=== PATIENT | female | born 1975 | race Caucasian/White ===

== ENCOUNTER → 2023-09-12 07:20 | Outpatient (REF) | payer OTHER, SELFPAY ==
[2023-09-12 09:38] LABS: Hepatitis B Surface Antibody Negative
== END ==
LOC: REG 07:20
PROVIDERS: ATTENDING PHYSICIAN Nurse Practitioner Adult Health; FAMILY PHYSICIAN Family Medicine
DX: Z23 Encounter for immunization (principal)
CPT/HCPCS: 86706

== ENCOUNTER 2024-02-01 09:01 | Emergency (ER) | payer OTHER, SELFPAY ==
[2024-02-01 09:05] VITALS: BP 142/77
--- NOTE | 2024-02-01 09:16 | ED.GENMED ---
History of Present Illness
General
Chief Complaint: Chest Pain
Time Seen by Provider: 02/01/24 09:15
History of Present Illness
History of Present Illness:
HPI: The patient presents with chest discomfort, some degree of shortness of breath, and upper extremity forearm tingling bilaterally. When I brought up the possibly of anxiety she thought it was possible. Her symptoms are not exertional in
nature. She did do some increased cleaning yesterday and her symptoms started after that and she thought perhaps the symptoms could have been 'overdoing it'. One of her main symptoms currently is concerns of the tingling in the upper extremities.
She reports no dysfunction of use in the upper extremities. She has a history of exercise-induced reactive airway disease and tried her inhaler with questionable improvement
EXAM:
GENERAL: Well appearing in no distress
HEENT: Moist oral mucosa
CARDIOVASCULAR: No murmurs, normal heart rate, regular rhythm, No chest wall tenderness
PULMONARY: No respiratory distress, breath sounds are slightly decreased equally but otherwise clear and equal
ABDOMEN: Soft with no peritoneal signs, no tenderness
NEUROLOGIC: Excellent strength all extremities, no coordination deficits, excellent upper extremity strength and no sensory deficits
PSYCHIATRIC: Appropriate mental status, normal insight and judgement
EXTREMITIES: Nontender, no edema, moves all extremities equally, excellent radial pulses bilaterally
SKIN: No rash, no lesions
TIME OF INITIAL ENCOUNTER: 9:20 AM
NUMBER AND COMPLEXITY OF PROBLEMS ADDRESSED AT THE ENCOUNTER
� Chronic conditions affecting care: Narcolepsy, no prior history of heart disease
� Acute Exacerbation and/or Progression of Chronic Illness: This is an acute
� Differential Diagnosis includes: Stress/anxiety, noncardiac chest wall pain, ACS very unlikely, reactive airway disease
AMOUNT AND/OR COMPLEXITY OF DATA TO BE REVIEWED AND ANALYZED
� I performed an independent evaluation of and my interpretation is:
EKG: Sinus 86, normal axis, nonspecific ST abnormality
CT:
X-rays: No acute abnormality noted on chest x-ray
Laboratory Studies: White count and hemoglobin are normal, D-dimer effectively rules out PE, troponin negative
Other:
� Review of other/old records: The patient had a colonoscopy 09/07/2021 with 1 polypectomy and some diverticular disease was noted
� Clinical information was obtained by an independent historian: None needed
� Prescriptions/Medications Considered but not given:
� Further testing considered but not performed:
RISK OF COMPLICATIONS AND/OR MORBIDITY OR MORTALITY OF PATIENT MANAGEMENT
� Social determinants of health affecting care: Lives at home
� Discussion with other providers:
� Escalation of care including admission/observation vs risk of discharge considered: One of the patient's main concern is the upper extremity tingling however she has an entirely normal neurologic examination. Her breath sounds
are slightly decreased but she is in no distress. The patient had symptoms since yesterday and has not been worsening and troponin is 0.015. She appears very comfortable. On reassessment at 10:20 AM, the patient does report some ongoing tingling
in the forearms ever she is very well-appearing. Unclear etiology�she is also to follow-up with cardiology.
Past History
Past History
ED Past Medical History: None
ED Past Surgical History: and Orthopedic
Social History
Tobacco: Non-smoker
Alcohol: Occasional
Drug: None
Personal:
Living: with family
Family History
Family History: Other (Noncontributory)
Phy Exam
Physical Exam
Physical Exam:
See HPI
Scores
Heart Score for Chest Pain Patients
STEMI patient?: Not applicable
Course
Orders/Labs/Results
Orders:
Orders
02/01/24 09:04
Electrocardiogram (*1) Urgent
Reason for Study: Chest Pain
EKG- Treatment ONCE
02/01/24 09:23
CR Chest - 2 Views Urgent
Comment:
Reason For Exam: cp sob
02/01/24 09:40
Basic Metabolic Panel Urgent
Complete Blood Count/With Diff Urgent
D-Dimer Urgent
Troponin I Urgent
Abnormal Lab Results
02/01/24
09:40
RBC 3.67 L 10^6/uL
(4.20-5.40)
Hct 34.6 L %
(37.0-47.0)
MCH 33.2 H pg
(27.0-31.0)
MPV 10.7 H fL
(7.4-10.4)
02/01/24 09:40
02/01/24 09:40
Vital Signs
Initial and Last Documented VS:
Initial Vital Signs
Temp Pulse Resp BP Pulse Ox
98.2 F 96 18 142/77 95
02/01/24 09:05 02/01/24 09:05 02/01/24 09:05 02/01/24 09:05 02/01/24 09:05
Last Documented Vital Signs
Temp Pulse Resp BP Pulse Ox
98.2 F 65 16 100/60 94
02/01/24 09:05 02/01/24 10:15 02/01/24 10:15 02/01/24 10:14 02/01/24 10:15
*Critical Care Note
Total Time (30-74mins, 75-104mins- exclusive of procedures): Not Applicable
ED Attending Note
-
Portions of this chart may have been created with voice recognition software.� Occasional wrong word or��sound alike� substitutions may have occurred due to the inherent limitations of voice recognition software.
Discharge Plan
Departure
Patient Disposition: Home (Routine Discharge)
Date of Disposition: 02/01/24
Time of Disposition: 10:22
Patient with high blood pressure during this ER visit?: Yes
Discharge Problem:
Chest pain
Instructions: Chest Pain DCA Follow Up
Prescriptions:
No Action
albuterol sulfate [Albuterol Sulfate HFA] 18 GM HFA aerosol inhaler
18 gm IH Q4HPRN PRN (Reason: wheezing) Qty: 1 0RF
fluticasone propionate [Flovent HFA] 1 PUFF HFA aerosol inhaler
2 puff inhalation DAILY Qty: 1 0RF
prednisone 50 MG tablet
50 mg PO DAILY Qty: 5 0RF
albuterol sulfate 1 PUFF HFA aerosol inhaler
2 puff inhalation R Q4HPRN PRN (Reason: sob) Qty: 1 0RF
Referrals:
Rodger Lunsford DO [Family Provider] -
Andrei David MD [Active] - Follow up in 2-3 days
Activity Restrictions/Additional Instructions:
The cause of your symptoms is unclear however there is no sign of heart attack, pneumothorax, or blood clot in the lung. Return here if worse. I also recommend you follow-up with a business administration teacher such as Dr. Talavera from his office
should be calling you to arrange follow-up.
Interventions
Interventions:
*Risk Screen - Suicide Last Done: 02/01/24 09:05
*General Assessment Last Done: 02/01/24 09:05
*Neglect/Abuse Screening Last Done: 02/01/24 09:05
ED- Fall Risk Assessment Last Done: 02/01/24 09:28
*ED COVID-19 Vaccine History Last Done: 02/01/24 09:28
ED- Cardiac Assessment Last Done: 02/01/24 09:28
Discharge Date and Time
Print Language: KITTITIAN
[2024-02-01 09:26] VITALS: BMI 31.8
[2024-02-01 09:28] VITALS: BP 109/60
[2024-02-01 09:49] LABS: % Basophils 0.7 % (0-2); % Eosinophils 3.2 % (0-6); % Immature Granulocytes 0.4 % (0-0.5); % Lymphocytes 26.5 % (20.5-51.1); % Monocytes 8.2 % (1.7-9.3); Absolute Eosinophils 0.2 10^3/uL (0-0.7); Absolute Lymphocytes 1.5 10^3/uL (1.2-3.4); Absolute Monocytes 0.5 10^3/uL (0.1-0.6); Absolute Neutrophils 3.5 10^3/uL (1.4-6.5); Hematocrit 34.6 % (37.0-47.0); Hemoglobin 12.2 g/dL (12.0-16.0); Mean Corp Hgb Conc. 35.3 g/dL (33.0-37.0); Mean Corpuscular Hgb 33.2 pg (27.0-31.0); Mean Corpuscular Volume 94.3 fL (81.0-99.0); Mean Platelet Volume 10.7 fL (7.4-10.4); Nucleated Red Blood Cells % 0 %; Platelet Count 283 10^3/uL (130-400); Red Blood Cell Count 3.67 10^6/uL (4.20-5.40); Red Cell Dist. Width 11.9 % (11.5-14.5); White Blood Cell Count 5.7 10^3/uL (4.8-10.8)
[2024-02-01 10:10] LABS: Blood Urea Nitrogen 16 mg/dl (7-17); Calcium 9.5 mg/dl (8.4-10.2); Carbon Dioxide 22 mmol/L (22-30); Chloride 106 mmol/L (98-107); Estimated Creatinine Clearance 103 ml/min; Glucose 99 mg/dl (70-99); Potassium 3.8 mmol/L (3.5-5.1); Sodium 137 mmol/L (135-145); eGFR > 60.00
[2024-02-01 10:14] VITALS: BP 100/60
[2024-02-01 10:14] LABS: Troponin I 0.015 ng/ml
[2024-02-01 10:16] LABS: D-Dimer < 0.27 ug/mlFEU (0.00-0.50)
== END 2024-02-01 10:45 | disposition home or self-care (01) ==
LOC: EMR 09:01
PROVIDERS: EMERGENCY PHYSICIAN Emergency Medicine; FAMILY PHYSICIAN Family Medicine
DX: R07.89 Other chest pain (principal); R06.02 Shortness of breath; R20.2 Paresthesia of skin; R03.0 Elevated blood-pressure reading, without diagnosis of hypertension; J45.909 Unspecified asthma, uncomplicated; G47.419 Narcolepsy without cataplexy
CPT/HCPCS: 99283; 71046; 80048; 84484; 85025; 85379; 93005

== ENCOUNTER → 2024-04-21 10:30 | Outpatient (REF) | payer OTHER, SELFPAY | LOC: WDC 10:30 | PROVIDERS: ATTENDING PHYSICIAN Nurse Practitioner Women's Health; FAMILY PHYSICIAN Family Medicine | DX: N63.15 Unspecified lump in the right breast, overlapping quadrants (principal) | CPT/HCPCS: 76642; 77065 ==